=== PATIENT | female | born 1985 | race Caucasian/White ===

== ENCOUNTER 2024-05-13 13:09 | Emergency (ER) | payer OTHER, SELFPAY ==
[2024-05-13 13:10] VITALS: BP 131/104; PULSE 99; RESP 16; TEMP 36.3; O2SAT 100; BMI 27.1
--- NOTE | 2024-05-13 13:24 | ED.RN ---
HX OF MIGRAINES, IT HAS BEEN ALMOST 15 YEARS SINCE SHE HAS HAD ONE. RESEMBLES THEM BUT SHE HAS NEVER HAD ANY DIZZINESS WITH THEM. PERFORMED [facility] WITH A SCORE OF 0.
--- NOTE | 2024-05-13 13:40 | CT_ITS ---
EXAM: CT scan of the head. CLINICAL HISTORY: One-week history of headaches. COMPARISON: None. TECHNIQUE: Helical imaging of CT head was performed without IV contrast. One or more of the following dose reduction techniques were used: automated exposure control, adjustment of the mA and/or kV according to patient size, use of iterative reconstruction technique. FINDINGS: BRAIN PARENCHYMA: No evidence for acute hemorrhage or large territory infarct. EXTRA-AXIAL SPACES: No acute extra-axial fluid collection identified. Basal cisterns are patent. MIDLINE SHIFT: None. VENTRICLES: No evidence of hydrocephalus. SCALP SOFT TISSUES: No significant abnormality. CALVARIUM: No acute process. VISUALIZED PARANASAL SINUSES: No CT/Brain/Head without Contrast IMPRESSION: No evidence of acute intracranial abnormality. Reading Location: [id number]
--- NOTE | 2024-05-13 13:44 | EDS_ITS ---
HPI History of Present Illness Chief Complaint: Headache Informant: patient Narrative Narrative: Patient is a 38-year-old female with remote history of migraines presenting with worsening headache over the past 12 days. She states it started about 12 days ago with a mild headache more over her right caodaism. She is alternating Tylenol and ibuprofen which helped but never completely resolved her headache. Over the past few days the headache is worsened, moved to her left caodaism and radiates down her behind her ears/the back of the head. She states she has had nausea with this but denies any vomiting. She describes feeling dizzy. When asked where the dizziness feels like she states is not a room spinning sensation but she feels that she is floating. She has had associated photophobia. She states today at work she had a hard time articulating some words which is what concerned her and brought her to the emergency room. She denies any head injury. She notes that she had a back injury about a month ago but that is seems to be doing better. She never hit her head during that. She denies associate numbness or tingling. Denies any vision changes. Denies any recent URI symptoms. No other complaints or concerns reported at this time. She d enies any family history of neurologic disorders. PFSH PFS Home Medications ?Medication ?Instructions ?Recorded ?Last Taken ?Type NK 05/13/24 Unknown History ondansetron 4 mg disintegrating 4 mg PO Q6H PRN nausea and 05/13/24 Unknown Rx tablet vomiting #14 tabs Allergy/AdvReac Type Severity Reaction Status Date / Time No Known Allergies Allergy Verified 05/13/24 13:24 Surgical History History of cardiac ablation for atrial fibrillation Social History Smoking Status: Never smoker ROS ROS ED Constitutional Constitutional ED: Denies chills or fever(s) Eyes Eyes: Reports other Details: Photophobia ; Denies diplopia ENT ENT ED: Denies rhinorrhea or sore throat Cardiovascular Cardiovascular: Denies chest pain Respiratory/Chest Respiratory/Chest: Denies cough or dyspnea Gastrointestinal Gastrointestinal: Reports nausea; Denies abdominal pain or vomiting Musculoskeletal Musculoskeletal: Denies arthralgias, myalgias or neck pain Integumentary Denies rash Neurologic Neurologic: Reports headache(s) and other Details: Perceived loss of fluency with speech ; Denies paresthesias or weakness Hematologic/Lymphatic Hematologic/Lymphatic: Denies easy bleeding or easy bruising EXAM Physical Exam Const Vital Signs: 05/13/24 13:10 05/13/24 15:10 Temperature 97.4 F L Temperature Source Temporal Pulse Rate 99 82 Respiratory Rate 16 16 Blood Pressure 131/104 H Blood Pressure Mean 113 Pulse Ox 100 99 Oxygen Delivery Method Room Air Positive well nourished and well developed General Appearance ED: well developed and NAD HEENT Reports normocephalic, TM's clear and moist mucous membranes Tympanic Membrane ED: Yes TM's clear Eyes PERRL and EOMs intact bilaterally Eyes Narrative: Pupils mildly dilated but reactive. Patient sitting in a dark room. Neck no lymphadenopathy, supple and no meningeal signs Resp normal respiratory effort and clear to auscultation bilaterally Cardio regular rate and regular rhythm GI non-tender Extremity normal to inspection and full ROM Neuro oriented x3, CN's II-XII intact bilaterally and no sensory deficits noted Sensorium / Orientation: awake and alert Sensory Exam: No sensory level loss detected Motor Exam: strength 5/5 throughout; Negative for general weakness Psych mental status grossly normal Skin Lesions: no lesions Rashes: no rashes MDM MDM MDM Narrative Medical decision making narrative: Patient is evaluated for worsening headache over the past 12 days. Today she felt that her speech was different. Patient is clear speech on my exam. Vital signs normal. She is not any meningeal signs. I suspect this is a migraine. Patient has not had a migraine for the past 15-16 years so will obtain CT of the brain to rule out space-occupying lesion or any large acute process. Patient started with IV fluids and Reglan. CT of the brain is negative and patient is reevaluated. States her headache is starting to improve but she started feel nauseous again. Is ordered Zofran, Decadron and Toradol. Will reevaluate. Anticipate discharge home once clinically improved. Radiography Diagnostic Testing: Clinical Impression(s) from Imaging Studies Brain CT 05/13/24 13:40 IMPRESSION: No evidence of acute intracranial abnormality. Reading Location: [id number] Discharge Plan Triage Chief Complaint: Headache ED Provider: Carol Huff Dx/Rx/DC Orders Clinical Impression: Headache Instructions: ED Headache Unspecified Prescriptions: New ondansetron 4 mg tablet,disintegrating 4 mg PO Q6H PRN (Reason: nausea and vomiting) Qty: 14 0RF No Action NK Primary Care Provider: Korey De La Torre Referrals: Korey De La Torre MD [Primary Care Provider] - Activity Restrictions/Additional Instructions: Your CT of the Brain was normal. Vital signs are normal in the emergency room. Please return if your symptoms progress or worsen. You may continue to alternate ibuprofen and Tylenol. Please follow-up with your primary care doctor as well. Print Language: Pashto Disposition Disposition: Home, Self Care
[2024-05-13] MEDS: 0.9% Normal Saline (1000mL) 1,000 ML 999 ML IV (14:12)
[2024-05-13] MEDS: Metoclopramide 10 MG/2 ML Vial IV (14:14)
[2024-05-13] MEDS: Ketorolac 15 MG/ML Vial IV (15:06)
[2024-05-13] MEDS: dexAMETHasone 10 MG/ML Vial 6 MG PO.IVFORM (15:06)
[2024-05-13] MEDS: Ondansetron 4 MG/2 ML Vial IV (15:07)
[2024-05-13 15:10] VITALS: PULSE 82; RESP 16; O2SAT 99
== END 2024-05-13 16:15 | disposition home or self-care (01) ==
PROVIDERS: Emergency Provider Emergency Medicine; PCP Family Medicine; Referring Provider Emergency Medicine; Visit Provider Emergency Medicine
DX: R51.9 Headache, unspecified (principal)
CPT/HCPCS: 70450; 96374; 96375; 99283; A4216; J2405